=== PATIENT | male | born 1995 | race Caucasian/White ===

== ENCOUNTER → 2019-03-24 | Outpatient (CLI) | payer OTHER ==
[~2019-03-24] MED LIST: APAP500T10 PO; AUGM875T28 PO; FLON1SPR NARES; PROAAER10 INH; PSEU120T32 PO
--- NOTE | 2019-03-25 08:41 | REP ---
Chest x-ray: Two views. History: Fever. Findings: The lungs are symmetrically aerated and free of infiltrate. Pleural angles are sharp. Heart size is normal. No significant bony abnormality is seen. Impression: No active disease. Electronically Signed by Joseph Cameron MD 03/25/2019 08:32 A
== END ==
LOC: M LRY 19:35
PROVIDERS: ATTEND Nurse Practitioner Family
DX: R50.9 Fever, unspecified (principal)
CPT/HCPCS: 71046; 87804; 87880; 94640; G0463; J7644

== ENCOUNTER 2020-04-26 07:13 | Emergency (ER) | payer OTHER ==
[~2020-04-26] VITALS: Ht 172.7 cm; Wt 82.2 kg
[2020-04-26] MEDS ORDERED: COMBIVENT RESPIMAT 100-20MCG INHALER 4GM INH STA (07:41)
--- NOTE | 2020-04-26 08:07 | REPVR ---
PROCEDURE INFORMATION: Exam: XR Chest, 2 Views Exam date and time: 04/26/2020 7:41 AM Age: 25 years old Clinical indication: Cough; Additional info: Cough, expriratory wheezing throughout right greater than left TECHNIQUE: Imaging protocol: XR of the chest Views: 2 views. COMPARISON: [facility] CHEST 2 VIEW 03/24/2019 7:38 PM FINDINGS: Lungs: No pulmonary mass, consolidation, or edema. Bilateral pulmonary hyperinflation. Pleural space: No pleural effusion. No pneumothorax. Heart/Mediastinum: The cardiomediastinal silhouette is within normal limits for size and contour. Diaphragm: Bilateral flattened hemidiaphragms. Bones/joints: No acute osseous abnormality. IMPRESSION: Bilateral pulmonary hyperinflation. No pulmonary consolidation. Electronically signed by: Edgar Pak On 04/26/2020 08:07:10 AM
[2020-04-26] MEDS ORDERED: PROA1AER2 INH (08:29)
[2020-04-26 08:38] VITALS: BP 131/74
== END 2020-04-26 08:42 | disposition home or self-care (01) ==
LOC: M ED 07:13
DX: J45.901 Unspecified asthma with (acute) exacerbation (principal); F17.220 Nicotine dependence, chewing tobacco, uncomplicated; Z91.010 Allergy to peanuts; Z91.013 Allergy to seafood

== ENCOUNTER → 2020-06-16 | Outpatient (CLI) | payer SELFPAY ==
[~2020-06-16] MED LIST changes: +PROA1AER2 INH
== END ==
LOC: M LABSMTC 10:47
PROVIDERS: ATTEND Pediatrics
DX: Z20.828 Contact with and (suspected) exposure to other viral communicable diseases (principal)